=== PATIENT | male | born 1960 | race Caucasian/White ===

== ENCOUNTER 2022-01-18 09:24 | Inpatient (IN) | payer OTHER ==
[2022-01-18] MEDS ORDERED: morphine CARPU-JECT 8 MG/1 ML DISP.SYRIN IVPUSH ONE (10:31)
[2022-01-18] MEDS ORDERED: morphine SULFATE 4 MG/ML VIAL ONE (10:37)
[2022-01-18 11:12] LABS: BASO % 0.4 % (0-2.0); EOS % 1.7 % (0-4.5); HEMATOCRIT 46.4 % (35.4-49); HEMOGLOBIN 15.5 GM/dL (11.7-16.9); LYMPH % 19.8 % (8-40); MCH 31.9 pg (25.7-33.7); MCHC 33.5 g/dl (32.0-35.9); MEAN CELL VOLUME 95.3 fl (80-96); MEAN PLT VOLUME 9.2 fl (7.5-11.1); MONO % 6.8 % (3.8-10.2); NEUT % 71.3 % (42.8-82.8); PLATELET COUNT 185 10^3/uL (134-434); RBC 4.87 M/mm3 (4.00-5.60); RDW 13.3 % (11.9-15.9); WHITE BLOOD COUNT 8.5 K/mm3 (4.0-10.0)
[2022-01-18 11:18] LABS: INR 1.09 (0.83-1.09); PROTHROMBIN TIME (PATIENT) 12.6 SEC (9.7-13.0)
[2022-01-18 11:26] LABS: ACTIVATED PTT 32.4 SECONDS (25.2-36.5)
[2022-01-18 11:42] LABS: ALBUMIN 3.4 g/dl (3.4-5.0); BLOOD UREA NITROGEN 15.2 mg/dL (7-18); CALCIUM 9.2 mg/dL (8.5-10.1)
[2022-01-18 11:45] LABS: CREATININE 0.8 mg/dL (0.55-1.3)
[2022-01-18 11:46] LABS: BILIRUBIN,TOTAL 0.5 mg/dL (0.2-1); TOT PROT 6.6 g/dl (6.4-8.2)
[2022-01-18] MEDS ORDERED: CYCLOBENZAPRINE HCL 10 MG TABLET (FP) PO SCH (13:00)
[2022-01-18] MEDS ORDERED: DOCUSATE SODIUM 100 MG CAPSULE (FP) PO PRN (14:04)
[2022-01-18 18:49] VITALS: BMI 31.4
[2022-01-18] MEDS: MIRTAZAPINE 15 MG TABLET (FP) PO SCH (21:22)
[2022-01-18] MEDS: SENNOSIDES 8.6MG TABLET (FP) PO SCH (21:22)
[2022-01-18] MEDS: POLYETHYLENE GLYCOL (HEALTHYLAX) 3350 17 GM PACKET PO SCH (21:22)
[2022-01-18] MEDS: CYCLOBENZAPRINE HCL 10 MG TABLET (FP) PO PRN (21:22)
[2022-01-19] MEDS ORDERED: THROMBIN (BOVINE) 20,000 UNIT VIAL TP ONE (07:25)
[2022-01-19] MEDS ORDERED: GENTAMICIN SO4 80 MG/2 ML VIAL ONE (07:25)
[2022-01-19] MEDS ORDERED: BUPIVACAINE HCL/PF 0.5% (5MG/ML) 10 ML VIAL ONE (07:25)
[2022-01-19] MEDS ORDERED: BUPIVACAINE LIPOSOME/PF (EXPAREL) 266 MG/20 ML VIAL ONE (07:25)
[2022-01-19] MEDS ORDERED: LIDOCAINE 1%/EPI 1:100000 (20 ML MULTI DOSE VIAL) ONE ×2 (07:25→07:29)
[2022-01-19] MEDS ORDERED: VANCOMYCIN 1,000 MG VIAL (RESTRICTED TO ID ONLY) ONE (07:25)
[2022-01-19 08:52] LABS: HEMATOCRIT 44.7 % (35.4-49); HEMOGLOBIN 15.6 GM/dL (11.7-16.9); MCH 32.8 pg (25.7-33.7); MCHC 34.8 g/dl (32.0-35.9); MEAN CELL VOLUME 94.2 fl (80-96); MEAN PLT VOLUME 9.5 fl (7.5-11.1); PLATELET COUNT 163 10^3/uL (134-434); RBC 4.75 M/mm3 (4.00-5.60); RDW 13.1 % (11.9-15.9)
[2022-01-19 09:13] LABS: BLOOD UREA NITROGEN 16.1 mg/dL (7-18)
[2022-01-19 09:15] LABS: CREATININE 0.7 mg/dL (0.55-1.3)
[2022-01-19] MEDS: TAMSULOSIN HCL 0.4 MG CAP PO SCH (09:28)
[2022-01-19] MEDS: SERTRALINE HCL 50 MG TABLET (FP) PO SCH (09:28)
[2022-01-19] MEDS: amLODIPine BESYLATE 5 MG TABLET (FP) PO SCH (09:28)
[2022-01-19] MEDS: POLYETHYLENE GLYCOL (HEALTHYLAX) 3350 17 GM PACKET PO SCH ×2 (09:28→21:37)
[2022-01-19] MEDS ORDERED: morphine SULFATE 4 MG/ML VIAL IVPUSH PRN (10:00)
[2022-01-19] MEDS: ACETAMINOPHEN 1000 MG/100 ML BAG IVPB PRN (10:11)
[2022-01-19] MEDS: LIDOCAINE 5% TOPICAL PATCH TP SCH (10:12)
[2022-01-19] MEDS ORDERED: ACETAMINOPHEN INJECTION 100 ML IVPB ONE (10:30)
[2022-01-19] MEDS ORDERED: DEXMEDETOMIDINE HCL 200 MCG/2 ML IVPB ONE (10:31)
[2022-01-19] MEDS ORDERED: ROCURONIUM BROMIDE 50 MG/5 ML SYRINGE ONE ×2 (10:41→12:37)
[2022-01-19] MEDS ORDERED: PROPOFOL 20 ML ONE ×8 (10:41→15:46)
[2022-01-19] MEDS ORDERED: SUCCINYLCHOLINE CHLORIDE 200 MG/10 ML SYRINGE ONE ×2 (10:41→15:19)
[2022-01-19] MEDS ORDERED: MIDAZOLAM HCL 2 MG/2 ML SINGLE DOSE VIAL ONE (11:37)
[2022-01-19] MEDS ORDERED: KETAMINE HCL 200 MG/20 ML VIAL ONE (11:56)
[2022-01-19] MEDS ORDERED: PHENYLEPHRINE HCL 10 MG/1 ML SINGLE DOSE VIAL ONE ×2 (11:56→13:35)
[2022-01-19] MEDS ORDERED: ceFAZolin SODIUM 1 GM VIAL IVPB ONE ×2 (12:36→18:00)
[2022-01-19] MEDS ORDERED: THROMBIN (BOVINE) 5,000 UNIT VIAL TP ONE (13:13)
[2022-01-19] MEDS ORDERED: HYDROGEN PEROXIDE 473 ML PO ONE (13:14)
[2022-01-19] MEDS ORDERED: GELATIN, ABSORBABLE 100 EACH SPONGE TP ONE (13:14)
[2022-01-19] MEDS ORDERED: GENTAMICIN SO4 80 MG/2 ML VIAL IVPB ONE (13:14)
[2022-01-19] MEDS ORDERED: ceFAZolin SODIUM 1 GM VIAL ONE ×2 (13:35→17:42)
[2022-01-19] MEDS ORDERED: DEXAMETHASONE SOD PHOSPHATE 4 MG/1 ML VIAL ONE (13:35)
[2022-01-19] MEDS ORDERED: LIDOCAINE HCL/PF 2% SDV 5ML VIAL ONE (13:35)
[2022-01-19] MEDS ORDERED: ONDANSETRON 4 MG/2 ML VIAL ONE (13:35)
[2022-01-19] MEDS ORDERED: SUGAMMADEX SODIUM 200 MG/2 ML VIAL ONE (15:01)
[2022-01-19] MEDS ORDERED: ePHEDrine SULFATE 50 MG/1 ML AMPULE ONE (15:19)
[2022-01-19] MEDS ORDERED: BUPIVACAINE LIPOSOME/PF (EXPAREL) 266 MG/20 ML VIAL NR ONE (15:38)
[2022-01-19] MEDS ORDERED: diphenhydrAMINE HCL 25 MG CAPSULE (FP) PO PRN (16:08)
[2022-01-19] MEDS ORDERED: oxyCODONE HCL 5 MG TABLET PO PRN (16:08)
[2022-01-19] MEDS ORDERED: ONDANSETRON 4 MG/2 ML VIAL IVPUSH PRN ×2 (16:08→16:55)
[2022-01-19] MEDS ORDERED: LACTATED RINGERS SOLUTION 1,000 ML/1,000 ML INFUS.BAG IV SCH (16:15)
[2022-01-19] MEDS ORDERED: ALBUTEROL SO4 0.083% IH SOL 2.5 MG/3 ML VIAL.NEB. NEB ONE (16:55)
[2022-01-19] MEDS ORDERED: ALBUTEROL SO4 0.083% IH SOL 2.5 MG/3 ML VIAL.NEB. NEB PRN (16:56)
[2022-01-19] MEDS: LACTATED RINGERS SOLUTION 1,000 ML IV SCH (19:00)
[2022-01-19] MEDS: CEFAZOLIN 1 GM in DEXTROSE 5%-WATER - 50 ML IVPB SCH (19:00)
[2022-01-19] MEDS: MIRTAZAPINE 15 MG TABLET (FP) PO SCH (21:38)
[2022-01-19] MEDS: LIDOCAINE PATCH REMOVAL MC SCH (21:38)
[2022-01-19] MEDS: SENNOSIDES 8.6MG TABLET (FP) PO SCH (21:38)
[2022-01-19] MEDS: HEPARIN NA (PORCINE) 5,000 UNITS/ML 1ML VIAL SQ SCH (21:39)
[2022-01-20] MEDS: CEFAZOLIN 1 GM in DEXTROSE 5%-WATER - 50 ML IVPB SCH ×3 (02:00→11:12)
[2022-01-20] MEDS: ACETAMINOPHEN 1000 MG/100 ML BAG IVPB PRN (02:38)
[2022-01-20] MEDS ORDERED: ceFAZolin SODIUM 1 GM VIAL ONE ×2 (03:39→09:25)
[2022-01-20] MEDS ORDERED: DEXTROSE 5%-WATER - 50 ML IVPB ONE ×2 (03:39→09:25)
[2022-01-20] MEDS: HEPARIN NA (PORCINE) 5,000 UNITS/ML 1ML VIAL SQ SCH ×3 (06:20→21:04)
[2022-01-20] MEDS: CYCLOBENZAPRINE HCL 10 MG TABLET (FP) PO PRN (06:32)
[2022-01-20 08:12] LABS: BASO % 0.3 % (0-2.0); EOS % 0.4 % (0-4.5); HEMATOCRIT 37.5 % (35.4-49); HEMOGLOBIN 12.6 GM/dL (11.7-16.9); LYMPH % 15.8 % (8-40); MCH 32.1 pg (25.7-33.7); MCHC 33.8 g/dl (32.0-35.9); MEAN CELL VOLUME 95.2 fl (80-96); MEAN PLT VOLUME 9.8 fl (7.5-11.1); MONO % 8.7 % (3.8-10.2); NEUT % 74.8 % (42.8-82.8); PLATELET COUNT 158 10^3/uL (134-434); RBC 3.94 M/mm3 (4.00-5.60); RDW 13.3 % (11.9-15.9); WHITE BLOOD COUNT 9.6 K/mm3 (4.0-10.0)
[2022-01-20 08:27] LABS: BLOOD UREA NITROGEN 14.2 mg/dL (7-18); CALCIUM 7.9 mg/dL (8.5-10.1); MAGNESIUM 1.7 mg/dL (1.8-2.4)
[2022-01-20 08:28] LABS: ALBUMIN 2.8 g/dl (3.4-5.0)
[2022-01-20 08:29] LABS: PHOSPHOROUS 3.2 mg/dL (2.5-4.9)
[2022-01-20 08:30] LABS: CREATININE 0.8 mg/dL (0.55-1.3)
[2022-01-20 08:32] LABS: BILIRUBIN,TOTAL 0.9 mg/dL (0.2-1); TOT PROT 5.2 g/dl (6.4-8.2)
[2022-01-20] MEDS: POLYETHYLENE GLYCOL (HEALTHYLAX) 3350 17 GM PACKET PO SCH ×2 (11:10→21:04)
[2022-01-20] MEDS: LIDOCAINE 5% TOPICAL PATCH TP SCH (11:10)
[2022-01-20] MEDS: FERROUS SO4 325 MG TABLET (FP) PO SCH (11:13)
[2022-01-20] MEDS: FOLIC ACID 1 MG TABLET (FP) PO SCH (11:13)
[2022-01-20] MEDS: SERTRALINE HCL 50 MG TABLET (FP) PO SCH (11:13)
[2022-01-20] MEDS: amLODIPine BESYLATE 5 MG TABLET (FP) PO SCH (11:13)
[2022-01-20] MEDS: TAMSULOSIN HCL 0.4 MG CAP PO SCH (11:13)
[2022-01-20] MEDS ORDERED: BACITRACIN 15 GM TUBE TOPICAL OINTMENT ONE (12:54)
[2022-01-20] MEDS ORDERED: LIDOCAINE HCL 1%, 10 MG/ML (20ML VIAL) ONE (12:54)
[2022-01-20] MEDS: LACTATED RINGERS SOLUTION 1,000 ML IV SCH ×2 (18:20→18:24)
[2022-01-20] MEDS: MIRTAZAPINE 15 MG TABLET (FP) PO SCH (21:04)
[2022-01-20] MEDS: morphine SULFATE 4 MG/ML VIAL IVPUSH PRN (21:04)
[2022-01-20] MEDS: SENNOSIDES 8.6MG TABLET (FP) PO SCH (21:04)
[2022-01-20] MEDS: LIDOCAINE PATCH REMOVAL MC SCH (21:06)
[2022-01-21] MEDS: LACTATED RINGERS SOLUTION 1,000 ML IV SCH (02:30)
[2022-01-21] MEDS: HEPARIN NA (PORCINE) 5,000 UNITS/ML 1ML VIAL SQ SCH ×3 (05:29→21:37)
[2022-01-21 07:27] LABS: CALCIUM 8.6 mg/dL (8.5-10.1)
[2022-01-21 07:28] LABS: ALBUMIN 3.1 g/dl (3.4-5.0); BLOOD UREA NITROGEN 8.9 mg/dL (7-18); MAGNESIUM 1.9 mg/dL (1.8-2.4)
[2022-01-21 07:31] LABS: CREATININE 0.6 mg/dL (0.55-1.3); PHOSPHOROUS 2.7 mg/dL (2.5-4.9)
[2022-01-21 07:32] LABS: TOT PROT 5.9 g/dl (6.4-8.2)
[2022-01-21 07:33] LABS: BILIRUBIN,TOTAL 0.9 mg/dL (0.2-1)
[2022-01-21] MEDS: SERTRALINE HCL 50 MG TABLET (FP) PO SCH (10:04)
[2022-01-21] MEDS: TAMSULOSIN HCL 0.4 MG CAP PO SCH (10:04)
[2022-01-21] MEDS: amLODIPine BESYLATE 5 MG TABLET (FP) PO SCH (10:04)
[2022-01-21] MEDS: LIDOCAINE 5% TOPICAL PATCH TP SCH (10:04)
[2022-01-21] MEDS: POLYETHYLENE GLYCOL (HEALTHYLAX) 3350 17 GM PACKET PO SCH ×2 (10:04→21:37)
[2022-01-21] MEDS: FOLIC ACID 1 MG TABLET (FP) PO SCH (10:05)
[2022-01-21] MEDS: FERROUS SO4 325 MG TABLET (FP) PO SCH (10:05)
[2022-01-21] MEDS: morphine SULFATE 4 MG/ML VIAL IVPUSH PRN ×2 (12:08→18:52)
[2022-01-21] MEDS: MIRTAZAPINE 15 MG TABLET (FP) PO SCH (21:37)
[2022-01-21] MEDS: SENNOSIDES 8.6MG TABLET (FP) PO SCH (21:37)
[2022-01-21] MEDS: LIDOCAINE PATCH REMOVAL MC SCH (21:40)
[2022-01-22] MEDS: HEPARIN NA (PORCINE) 5,000 UNITS/ML 1ML VIAL SQ SCH ×3 (05:19→22:45)
[2022-01-22 07:02] LABS: BASO % 0.5 % (0-2.0); EOS % 2.9 % (0-4.5); HEMATOCRIT 39.1 % (35.4-49); HEMOGLOBIN 13.4 GM/dL (11.7-16.9); LYMPH % 16.8 % (8-40); MCH 32.5 pg (25.7-33.7); MCHC 34.2 g/dl (32.0-35.9); MEAN CELL VOLUME 95.1 fl (80-96); MEAN PLT VOLUME 9.2 fl (7.5-11.1); MONO % 7.7 % (3.8-10.2); NEUT % 72.1 % (42.8-82.8); PLATELET COUNT 154 10^3/uL (134-434); RBC 4.11 M/mm3 (4.00-5.60); RDW 13.1 % (11.9-15.9); WHITE BLOOD COUNT 9.6 K/mm3 (4.0-10.0)
[2022-01-22 07:30] LABS: CALCIUM 8.6 mg/dL (8.5-10.1)
[2022-01-22 07:31] LABS: ALBUMIN 2.9 g/dl (3.4-5.0); BLOOD UREA NITROGEN 10.9 mg/dL (7-18); MAGNESIUM 2.1 mg/dL (1.8-2.4)
[2022-01-22 07:34] LABS: CREATININE 0.7 mg/dL (0.55-1.3); PHOSPHOROUS 2.8 mg/dL (2.5-4.9)
[2022-01-22 07:35] LABS: BILIRUBIN,TOTAL 0.6 mg/dL (0.2-1); TOT PROT 5.9 g/dl (6.4-8.2)
[2022-01-22] MEDS: SERTRALINE HCL 50 MG TABLET (FP) PO SCH (09:17)
[2022-01-22] MEDS: POLYETHYLENE GLYCOL (HEALTHYLAX) 3350 17 GM PACKET PO SCH ×2 (09:17→22:45)
[2022-01-22] MEDS: FERROUS SO4 325 MG TABLET (FP) PO SCH (09:17)
[2022-01-22] MEDS: FOLIC ACID 1 MG TABLET (FP) PO SCH (09:17)
[2022-01-22] MEDS: TAMSULOSIN HCL 0.4 MG CAP PO SCH (09:17)
[2022-01-22] MEDS: LIDOCAINE 5% TOPICAL PATCH TP SCH (09:17)
[2022-01-22] MEDS: amLODIPine BESYLATE 5 MG TABLET (FP) PO SCH (09:17)
[2022-01-22] MEDS: morphine SULFATE 4 MG/ML VIAL IVPUSH PRN (15:02)
[2022-01-22] MEDS: MAGNESIUM HYDROX 2400MG/30ML ORAL SUSPENSION 30 ML CUP PO SCH (16:41)
[2022-01-22] MEDS: MIRTAZAPINE 15 MG TABLET (FP) PO SCH (22:45)
[2022-01-22] MEDS: LIDOCAINE PATCH REMOVAL MC SCH (22:45)
[2022-01-22] MEDS: SENNOSIDES 8.6MG TABLET (FP) PO SCH (22:45)
[2022-01-23] MEDS: HEPARIN NA (PORCINE) 5,000 UNITS/ML 1ML VIAL SQ SCH ×2 (05:56→15:01)
[2022-01-23] MEDS: TAMSULOSIN HCL 0.4 MG CAP PO SCH (10:31)
[2022-01-23] MEDS: SERTRALINE HCL 50 MG TABLET (FP) PO SCH (10:32)
[2022-01-23] MEDS: MAGNESIUM HYDROX 2400MG/30ML ORAL SUSPENSION 30 ML CUP PO SCH (10:32)
[2022-01-23] MEDS: FERROUS SO4 325 MG TABLET (FP) PO SCH (10:32)
[2022-01-23] MEDS: LIDOCAINE 5% TOPICAL PATCH TP SCH (10:32)
[2022-01-23] MEDS: POLYETHYLENE GLYCOL (HEALTHYLAX) 3350 17 GM PACKET PO SCH (10:32)
[2022-01-23] MEDS: amLODIPine BESYLATE 5 MG TABLET (FP) PO SCH (10:32)
[2022-01-23] MEDS: FOLIC ACID 1 MG TABLET (FP) PO SCH (10:32)
[2022-01-23] MEDS ORDERED: ACETAMINOPHEN 325 MG TABLET (FP) PO ONE (15:28)
[2022-01-23 17:24] VITALS: TEMP 98.9
[2022-01-23 18:18] VITALS: BP 135/80; PULSE 96
== END 2022-01-23 19:38 | DRG 304 ==
LOC: JER 09:24 → JERBED 12:29 → J6S 18:23 → J4W 01-19 18:54
PROVIDERS: ADMIT Internal Medicine; ATTEND Internal Medicine
PROC: 0SG0071 Fusion of Lumbar Vertebral Joint with Autologous Tissue Substitute, Posterior Approach, Posterior Column, Open Approach (ICD-10-PCS; 2022-01-19)
PROC: 0QB00ZZ Excision of Lumbar Vertebra, Open Approach (ICD-10-PCS; 2022-01-19)
PROC: 01NB0ZZ Release Lumbar Nerve, Open Approach (ICD-10-PCS; 2022-01-19)
PROC: 0SG30AJ Fusion of Lumbosacral Joint with Interbody Fusion Device, Posterior Approach, Anterior Column, Open Approach (ICD-10-PCS; 2022-01-19)
PROC: 4A1004G Monitoring of Central Nervous Electrical Activity, Intraoperative, Open Approach (ICD-10-PCS; 2022-01-19)
PROC: 0SG3071 Fusion of Lumbosacral Joint with Autologous Tissue Substitute, Posterior Approach, Posterior Column, Open Approach (ICD-10-PCS; 2022-01-19)
PROC: 0SG00AJ Fusion of Lumbar Vertebral Joint with Interbody Fusion Device, Posterior Approach, Anterior Column, Open Approach (ICD-10-PCS; principal; 2022-01-19 10:00)
DX: M47.896 Other spondylosis, lumbar region (principal); F32.A Depression, unspecified; G47.00 Insomnia, unspecified; I10 Essential (primary) hypertension; K59.00 Constipation, unspecified
CPT/HCPCS: 36415; 71045-TC-FY; 72131-TC; 73610-TC-RT-FY; 76000-TC-FY; 80048; 80053; 83735; 84100; 85025; 85027; 85610; 85730; 86850; 86900; 86901; 86922; 93005; 93010; 94660; 94760; 97110-GP; 97116-GP; 97162-GP; C9803-CS; J1644; U0003; U0005

== ENCOUNTER 2023-07-26 05:15 | Inpatient (IN) | payer OTHER ==
[2023-07-25 10:21] VITALS: BMI 27.5
[2023-07-26] MEDS ORDERED: THROMBIN (BOVINE) 5,000 UNIT VIAL TP ONE ×3 (07:19→09:47)
[2023-07-26] MEDS ORDERED: BACITRACIN ZINC 15 GM TUBE TOPICAL OINTMENT ONE (07:19)
[2023-07-26] MEDS ORDERED: GENTAMICIN SO4 80 MG/2 ML VIAL ONE (07:19)
[2023-07-26] MEDS ORDERED: VANCOMYCIN 1,000 MG VIAL (RESTRICTED TO ID ONLY) ONE (07:19)
[2023-07-26] MEDS ORDERED: BUPIVACAINE LIPOSOME/PF (EXPAREL) 266 MG/20 ML VIAL ONE (07:20)
[2023-07-26] MEDS ORDERED: BUPIVACAINE HCL/PF 0.5% (5MG/ML) 10 ML VIAL ONE (07:20)
[2023-07-26] MEDS ORDERED: LIDOCAINE 1%/EPI 1:100000 (20 ML MULTI DOSE VIAL) ONE (07:20)
[2023-07-26] MEDS ORDERED: DEXAMETHASONE SOD PHOSPHATE 4 MG/1 ML VIAL IVPUSH PRN (07:25)
[2023-07-26] MEDS ORDERED: ONDANSETRON 4 MG/2 ML VIAL IVPUSH PRN ×2 (07:25→13:54)
[2023-07-26] MEDS ORDERED: LIDOCAINE 1%/EPI 1:100000 (20 ML MULTI DOSE VIAL) IJ ONE ×3 (07:29→11:12)
[2023-07-26] MEDS ORDERED: ceFAZolin SODIUM 1 GM VIAL IVPB ONE ×3 (07:30→12:45)
[2023-07-26] MEDS ORDERED: LACTATED RINGERS SOLUTION 1,000 ML IV SCH (07:30)
[2023-07-26] MEDS ORDERED: VANCOMYCIN 1 GM in D5W (PRE-DOCKED) 1,000 MG/250 ML (RESTRICTED TO ID ONLY IVPB ONE ×2 (07:30→09:02)
[2023-07-26] MEDS ORDERED: DEXMEDETOMIDINE HCL 200 MCG/2 ML IVPB ONE (08:10)
[2023-07-26] MEDS ORDERED: HYDROmorphone HCl 2 MG/ML VIAL ONE (08:13)
[2023-07-26] MEDS ORDERED: ROCURONIUM BROMIDE 50 MG/5 ML SYRINGE ONE (08:15)
[2023-07-26] MEDS ORDERED: PROPOFOL 20 ML ONE ×2 (08:15→10:04)
[2023-07-26] MEDS ORDERED: MIDAZOLAM HCL 2 MG/2 ML SINGLE DOSE VIAL ONE (08:16)
[2023-07-26] MEDS ORDERED: GENTAMICIN SO4 80 MG/2 ML VIAL IVPB ONE ×3 (08:39→11:38)
[2023-07-26] MEDS ORDERED: FENTANYL CITRATE/PF 50 MCG/ML VIAL ONE ×3 (08:46→11:10)
[2023-07-26] MEDS ORDERED: HYDROGEN PEROXIDE 473 ML PO ONE (10:00)
[2023-07-26] MEDS ORDERED: BUPIVACAINE LIPOSOME/PF (EXPAREL) 266 MG/20 ML VIAL NR ONE (12:40)
[2023-07-26] MEDS ORDERED: BUPIVACAINE HCL/PF 0.5% (5 MG/ML) 30 ML VIAL IJ ONE (12:40)
[2023-07-26] MEDS ORDERED: NEOSTIGMINE METHYLSULFATE 0.5 MG/1 ML - 10 ML MDV ONE (12:46)
[2023-07-26] MEDS ORDERED: diphenhydrAMINE HCL 25 MG CAPSULE (FP) PO PRN (13:54)
[2023-07-26] MEDS ORDERED: HYDROmorphone *PCA* 10MG/50ML DISP.SYRIN ONE (13:56)
[2023-07-26] MEDS: HYDROmorphone *PCA* 10MG/50ML DISP.SYRIN PCA SCH (14:02)
[2023-07-26] MEDS: ACETAMINOPHEN 1000 MG/100 ML BAG IVPB SCH ×2 (14:15→21:40)
[2023-07-26] MEDS ORDERED: LABETALOL HCL 5 MG/1 ML (100MG/20 ML VIAL) IVPUSH ONE (16:50)
[2023-07-26] MEDS ORDERED: LABETALOL HCL 20 MG/4 ML VIAL IVPUSH ONE (17:10)
[2023-07-26] MEDS: DOCUSATE SODIUM 100 MG CAPSULE (FP) PO SCH ×2 (18:23→21:42)
[2023-07-26] MEDS: LACTATED RINGERS SOLUTION 1,000 ML/1,000 ML INFUS.BAG IV SCH (18:23)
[2023-07-26] MEDS: CEFAZOLIN 1 GM in DEXTROSE 5%-WATER - 50 ML IVPB SCH (19:55)
[2023-07-26] MEDS: HEPARIN NA (PORCINE) 5,000 UNITS/ML 1ML VIAL SQ SCH (21:42)
[2023-07-27] MEDS: HYDROmorphone *PCA* 10MG/50ML DISP.SYRIN PCA SCH ×2 (00:36→09:50)
[2023-07-27] MEDS: ACETAMINOPHEN 1000 MG/100 ML BAG IVPB SCH ×2 (02:17→09:43)
[2023-07-27] MEDS: CEFAZOLIN 1 GM in DEXTROSE 5%-WATER - 50 ML IVPB SCH ×3 (04:23→20:28)
[2023-07-27] MEDS: HEPARIN NA (PORCINE) 5,000 UNITS/ML 1ML VIAL SQ SCH ×3 (06:08→21:54)
[2023-07-27] MEDS: DOCUSATE SODIUM 100 MG CAPSULE (FP) PO SCH ×3 (06:08→21:55)
[2023-07-27] MEDS: LACTATED RINGERS SOLUTION 1,000 ML/1,000 ML INFUS.BAG IV SCH ×3 (09:22→21:55)
[2023-07-27] MEDS: TAMSULOSIN HCL 0.4 MG CAP PO SCH (09:43)
[2023-07-27] MEDS: FOLIC ACID 1 MG TABLET (FP) PO SCH (09:43)
[2023-07-27] MEDS: FERROUS SO4 325 MG TABLET (FP) PO SCH (09:43)
[2023-07-27 10:09] LABS: HEMATOCRIT 40.3 % (35.4-49); HEMOGLOBIN 13.3 GM/dL (11.7-16.9); MCH 31.9 pg (25.7-33.7); MEAN CELL VOLUME 96.7 fl (80-96); MEAN PLT VOLUME 9.4 fl (7.5-11.1); PLATELET COUNT 237 10^3/uL (134-434); RBC 4.17 M/mm3 (4.00-5.60); RDW 13.2 % (11.9-15.9); WHITE BLOOD COUNT 11.3 K/mm3 (4.0-10.0)
[2023-07-27 10:39] LABS: POTASSIUM 3.7 mmol/L (3.5-5.1)
[2023-07-27 10:42] LABS: BLOOD UREA NITROGEN 11.5 mg/dL (7-18); CALCIUM 8.4 mg/dL (8.5-10.1)
[2023-07-27 10:47] LABS: CREATININE 0.6 mg/dL (0.55-1.3)
[2023-07-27] MEDS ORDERED: LABETALOL HCL 20 MG/4 ML VIAL IVPB STA (19:21)
[2023-07-27] MEDS ORDERED: hydrALAZINE HCL 20 MG/ML VIAL IVPB ONE (19:26)
[2023-07-27] MEDS ORDERED: amLODIPine BESYLATE 5 MG TABLET (FP) PO ONE (21:26)
[2023-07-27] MEDS: GABAPENTIN 100 MG CAPSULE PO SCH (21:55)
[2023-07-28] MEDS: CEFAZOLIN 1 GM in DEXTROSE 5%-WATER - 50 ML IVPB SCH ×3 (03:33→20:34)
[2023-07-28] MEDS: HEPARIN NA (PORCINE) 5,000 UNITS/ML 1ML VIAL SQ SCH ×3 (05:29→22:07)
[2023-07-28] MEDS: GABAPENTIN 100 MG CAPSULE PO SCH ×3 (05:30→22:07)
[2023-07-28] MEDS: DOCUSATE SODIUM 100 MG CAPSULE (FP) PO SCH ×3 (05:30→22:07)
[2023-07-28 08:38] LABS: HEMATOCRIT 43.3 % (35.4-49); HEMOGLOBIN 15.1 GM/dL (11.7-16.9); MCH 32.6 pg (25.7-33.7); MEAN CELL VOLUME 93.1 fl (80-96); MEAN PLT VOLUME 9.7 fl (7.5-11.1); PLATELET COUNT 249 10^3/uL (134-434); RBC 4.65 M/mm3 (4.00-5.60); RDW 13.4 % (11.9-15.9); WHITE BLOOD COUNT 9.8 K/mm3 (4.0-10.0)
[2023-07-28 08:45] LABS: POTASSIUM 3.7 mmol/L (3.5-5.1)
[2023-07-28 08:47] LABS: CALCIUM 8.6 mg/dL (8.5-10.1)
[2023-07-28 08:48] LABS: ALBUMIN 3.2 g/dl (3.4-5.0); MAGNESIUM 1.9 mg/dL (1.8-2.4)
[2023-07-28 08:51] LABS: CREATININE 0.6 mg/dL (0.55-1.3)
[2023-07-28 08:52] LABS: BILIRUBIN,TOTAL 0.5 mg/dL (0.2-1); TOT PROT 6.3 g/dl (6.4-8.2)
[2023-07-28 09:03] LABS: IRON SERUM 46 ug/dL (50-175)
[2023-07-28 09:04] LABS: TOTAL IRON BINDING CAPACITY 221 ug/dL (250-450)
[2023-07-28] MEDS: TAMSULOSIN HCL 0.4 MG CAP PO SCH (09:06)
[2023-07-28] MEDS: FOLIC ACID 1 MG TABLET (FP) PO SCH (09:06)
[2023-07-28] MEDS: FERROUS SO4 325 MG TABLET (FP) PO SCH (09:06)
[2023-07-28] MEDS: LACTATED RINGERS SOLUTION 1,000 ML/1,000 ML INFUS.BAG IV SCH ×2 (09:12→22:08)
[2023-07-28] MEDS: HYDROmorphone *PCA* 10MG/50ML DISP.SYRIN PCA SCH (09:20)
[2023-07-28] MEDS ORDERED: METHYLNALTREXONE BROMIDE 8 MG/0.4 ML SYRINGE SQ ONE (17:00)
[2023-07-28] MEDS: oxyCODONE HCL 5 MG TABLET PO PRN ×2 (17:36→23:14)
[2023-07-29] MEDS ORDERED: ceFAZolin SODIUM 1 GM VIAL ONE (04:22)
[2023-07-29] MEDS: CEFAZOLIN 1 GM in DEXTROSE 5%-WATER - 50 ML IVPB SCH ×3 (04:23→21:03)
[2023-07-29] MEDS: GABAPENTIN 100 MG CAPSULE PO SCH ×3 (05:57→21:40)
[2023-07-29] MEDS: HEPARIN NA (PORCINE) 5,000 UNITS/ML 1ML VIAL SQ SCH ×3 (05:57→21:40)
[2023-07-29] MEDS: DOCUSATE SODIUM 100 MG CAPSULE (FP) PO SCH ×3 (05:57→21:40)
[2023-07-29] MEDS: oxyCODONE HCL 5 MG TABLET PO PRN ×3 (06:57→22:51)
[2023-07-29] MEDS: TAMSULOSIN HCL 0.4 MG CAP PO SCH (09:55)
[2023-07-29] MEDS: FERROUS SO4 325 MG TABLET (FP) PO SCH (09:55)
[2023-07-29] MEDS: FOLIC ACID 1 MG TABLET (FP) PO SCH (09:55)
[2023-07-30] MEDS: LACTATED RINGERS SOLUTION 1,000 ML/1,000 ML INFUS.BAG IV SCH (00:08)
[2023-07-30] MEDS ORDERED: ACETAMINOPHEN 1000 MG/100 ML BAG IVPB ONE (03:40)
[2023-07-30] MEDS: CEFAZOLIN 1 GM in DEXTROSE 5%-WATER - 50 ML IVPB SCH ×2 (04:35→11:05)
[2023-07-30] MEDS: GABAPENTIN 100 MG CAPSULE PO SCH ×3 (06:02→22:48)
[2023-07-30] MEDS: DOCUSATE SODIUM 100 MG CAPSULE (FP) PO SCH ×3 (06:02→22:48)
[2023-07-30] MEDS: HEPARIN NA (PORCINE) 5,000 UNITS/ML 1ML VIAL SQ SCH ×3 (06:02→22:48)
[2023-07-30] MEDS: FOLIC ACID 1 MG TABLET (FP) PO SCH (09:33)
[2023-07-30] MEDS: TAMSULOSIN HCL 0.4 MG CAP PO SCH (09:33)
[2023-07-30] MEDS: amLODIPine BESYLATE 5 MG TABLET (FP) PO SCH (09:33)
[2023-07-30] MEDS: FERROUS SO4 325 MG TABLET (FP) PO SCH (09:33)
[2023-07-30] MEDS: POLYETHYLENE GLYCOL (HEALTHYLAX) 3350 17 GM PACKET PO SCH ×2 (10:45→22:48)
[2023-07-30] MEDS ORDERED: MAGNESIUM HYDROX 2400MG/30ML ORAL SUSPENSION 30 ML CUP PO ONE (16:55)
[2023-07-30] MEDS: oxyCODONE HCL 5 MG TABLET PO PRN ×2 (17:25→23:33)
[2023-07-31] MEDS: GABAPENTIN 100 MG CAPSULE PO SCH ×3 (05:55→22:25)
[2023-07-31] MEDS: DOCUSATE SODIUM 100 MG CAPSULE (FP) PO SCH ×3 (05:55→22:25)
[2023-07-31] MEDS: HEPARIN NA (PORCINE) 5,000 UNITS/ML 1ML VIAL SQ SCH ×3 (05:55→22:25)
[2023-07-31] MEDS: amLODIPine BESYLATE 5 MG TABLET (FP) PO SCH (09:32)
[2023-07-31] MEDS: FERROUS SO4 325 MG TABLET (FP) PO SCH (09:49)
[2023-07-31] MEDS: POLYETHYLENE GLYCOL (HEALTHYLAX) 3350 17 GM PACKET PO SCH ×2 (09:50→22:34)
[2023-07-31] MEDS: TAMSULOSIN HCL 0.4 MG CAP PO SCH (09:50)
[2023-07-31] MEDS: FOLIC ACID 1 MG TABLET (FP) PO SCH (09:50)
[2023-07-31] MEDS ORDERED: MAGNESIUM CITRATE 300 ML BOTTLE PO ONE (15:45)
[2023-07-31] MEDS: ACETAMINOPHEN 325 MG TABLET (FP) PO PRN (17:08)
[2023-07-31] MEDS: guaiFENesin 200 MG/10 ML 10 ML UNIT-DOSE CUPS PO PRN (17:09)
[2023-07-31] MEDS: oxyCODONE HCL 5 MG TABLET PO PRN (23:43)
[2023-08-01] MEDS: DOCUSATE SODIUM 100 MG CAPSULE (FP) PO SCH ×3 (05:03→22:30)
[2023-08-01] MEDS: GABAPENTIN 100 MG CAPSULE PO SCH ×3 (05:03→22:30)
[2023-08-01] MEDS: HEPARIN NA (PORCINE) 5,000 UNITS/ML 1ML VIAL SQ SCH ×3 (05:03→22:29)
[2023-08-01] MEDS ORDERED: METHYLNALTREXONE BROMIDE 8 MG/0.4 ML SYRINGE SQ ONE ×2 (07:30→10:00)
[2023-08-01] MEDS: TAMSULOSIN HCL 0.4 MG CAP PO SCH (08:19)
[2023-08-01] MEDS: POLYETHYLENE GLYCOL (HEALTHYLAX) 3350 17 GM PACKET PO SCH ×2 (09:12→22:30)
[2023-08-01] MEDS: FERROUS SO4 325 MG TABLET (FP) PO SCH (09:12)
[2023-08-01] MEDS: FOLIC ACID 1 MG TABLET (FP) PO SCH (09:12)
[2023-08-01] MEDS: amLODIPine BESYLATE 5 MG TABLET (FP) PO SCH (09:13)
[2023-08-01] MEDS: ACETAMINOPHEN 325 MG TABLET (FP) PO PRN (09:31)
[2023-08-01] MEDS: oxyCODONE HCL 5 MG TABLET PO PRN (19:06)
[2023-08-01] MEDS: guaiFENesin 200 MG/10 ML 10 ML UNIT-DOSE CUPS PO PRN (22:29)
[2023-08-02] MEDS: ACETAMINOPHEN 325 MG TABLET (FP) PO PRN ×3 (00:14→22:20)
[2023-08-02] MEDS: HEPARIN NA (PORCINE) 5,000 UNITS/ML 1ML VIAL SQ SCH ×3 (05:19→21:37)
[2023-08-02] MEDS: DOCUSATE SODIUM 100 MG CAPSULE (FP) PO SCH ×3 (05:19→21:37)
[2023-08-02] MEDS: GABAPENTIN 100 MG CAPSULE PO SCH ×3 (05:19→21:37)
[2023-08-02] MEDS: FERROUS SO4 325 MG TABLET (FP) PO SCH (09:16)
[2023-08-02] MEDS: FOLIC ACID 1 MG TABLET (FP) PO SCH (09:16)
[2023-08-02] MEDS: amLODIPine BESYLATE 5 MG TABLET (FP) PO SCH (09:16)
[2023-08-02] MEDS: TAMSULOSIN HCL 0.4 MG CAP PO SCH (09:16)
[2023-08-02] MEDS: POLYETHYLENE GLYCOL (HEALTHYLAX) 3350 17 GM PACKET PO SCH ×2 (09:16→21:38)
[2023-08-03] MEDS: DOCUSATE SODIUM 100 MG CAPSULE (FP) PO SCH ×2 (05:09→13:19)
[2023-08-03] MEDS: GABAPENTIN 100 MG CAPSULE PO SCH ×2 (05:09→13:19)
[2023-08-03] MEDS: HEPARIN NA (PORCINE) 5,000 UNITS/ML 1ML VIAL SQ SCH ×2 (05:09→13:19)
[2023-08-03] MEDS: amLODIPine BESYLATE 5 MG TABLET (FP) PO SCH (09:24)
[2023-08-03] MEDS: FERROUS SO4 325 MG TABLET (FP) PO SCH (09:24)
[2023-08-03] MEDS: POLYETHYLENE GLYCOL (HEALTHYLAX) 3350 17 GM PACKET PO SCH (09:24)
[2023-08-03] MEDS: TAMSULOSIN HCL 0.4 MG CAP PO SCH (09:24)
[2023-08-03] MEDS: FOLIC ACID 1 MG TABLET (FP) PO SCH (09:24)
[2023-08-03 15:49] VITALS: BP 128/79; PULSE 104; RESP 20; TEMP 98.2
== END 2023-08-03 20:00 | disposition home or self-care (01) | DRG 321 ==
LOC: J2C 05:15 → J8W 18:19
PROVIDERS: ADMIT Family Medicine; ATTEND Family Medicine
PROC: 0RB30ZZ Excision of Cervical Vertebral Disc, Open Approach (ICD-10-PCS; 2023-07-26)
PROC: 00NW0ZZ Release Cervical Spinal Cord, Open Approach (ICD-10-PCS; 2023-07-26)
PROC: 0RG4071 Fusion of Cervicothoracic Vertebral Joint with Autologous Tissue Substitute, Posterior Approach, Posterior Column, Open Approach (ICD-10-PCS; 2023-07-26)
PROC: 4A1004G Monitoring of Central Nervous Electrical Activity, Intraoperative, Open Approach (ICD-10-PCS; 2023-07-26)
PROC: 0RG20A0 Fusion of 2 or more Cervical Vertebral Joints with Interbody Fusion Device, Anterior Approach, Anterior Column, Open Approach (ICD-10-PCS; principal; 2023-07-26 08:00)
PROC: 0RG2071 Fusion of 2 or more Cervical Vertebral Joints with Autologous Tissue Substitute, Posterior Approach, Posterior Column, Open Approach (ICD-10-PCS; 2023-07-26 08:00)
DX: M47.12 Other spondylosis with myelopathy, cervical region (principal); I97.3 Postprocedural hypertension; K59.00 Constipation, unspecified; M40.202 Unspecified kyphosis, cervical region; Y83.9 Surgical procedure, unspecified as the cause of abnormal reaction of the patient, or of later complication, without mention of misadventure at the time of the procedure
CPT/HCPCS: 36415; 72125-TC; 76000-TC-FY; 80048; 80053; 83540; 83550; 83735; 85027; 86850; 86900; 86901; 94760; 97116-GP; 97161-GP; C1713; J1644